=== PATIENT | female | born 1970 | race Caucasian/White ===

== ENCOUNTER → 2020-06-02 13:19 | Outpatient (CLI) | payer OTHER, SELFPAY ==
--- NOTE | ~2020-06-02 | DEXA_ITS ---
Bone Density Report Name: Fara Livingston Age: 50 Sex: Female Ethnicity: White Date of : 1970 Indication: screening for osteoporosis; height loss; Referring Provider: ALISTAIR SERRANO Study: Bone densitometry was performed. Exam Date: June 02, 2020 Accession number: [id number] Bone Density: Region BMD T-score Z-score Classification AP Spine (L1-L4) 0.893 -1.4 -0.6 Osteopenia Femoral Neck (Left) 0.804 -0.4 0.4 Normal Total Hip (Left) 0.955 0.1 0.6 Normal Femoral Neck (Right) 0.839 -0.1 0.7 Normal Total Hip (Right) 0.943 0.0 0.5 Normal Total Hip Mean 0.949 0.1 0.6 Normal World Health Organization criteria for BMD impression classify patients as: Normal (T-score at or above -1.0), Osteopenia (T-score between -1.0 and -2.5), or Osteoporosis (T-score at or below -2.5). 10-year Fracture Risk: FRAX not reported because: Premenopausal woman Clinical Information Provided by Patient: Has used the following medications: Vitamin D, Calcium Patient maximum height was 65.5 No regular weight bearing exercise Does not regularly consume dairy products Drinks caffeinated beverages Onset of menses at age 11 Premenopausal Number of children 3 Impression: The patient's bone mass is within expected range for age, gender and ethnicity. Discussion: BONE DENSITY IS WITHIN EXPECTED LIMITS FOR AGE, SEX AND RACE. Bone density is within expected limits for age, sex and race at all sites measured. The patient should follow a healthful lifestyle (good nutrition with adequate calcium and vitamin D, and appropriate weight-bearing exercise). Follow-Up: Consider repeating this study in 2 to 3 years to reassess this patient's status, or sooner if there is some new clinical indication. Reported by: [facility] on 06/02/2020 1:44:00 PM. Reviewed, dictated and finalized at location AHarrison QUIGLEY
--- NOTE | ~2020-06-02 | MM_ITS ---
EXAMINATION: MM screening [facility] BI w tiffanie HISTORY: Screening mammogram TECHNIQUE: Craniocaudal and mediolateral oblique 3-D tomosynthesis images were obtained and synthetic 2-D images were generated. CAD analysis was submitted and interpreted. COMPARISON: 06/02/2018, 07/17/2016, 01/24/2015, 01/13/2015 BREAST PARENCHYMAL COMPOSITION: There are scattered areas of fibroglandular density. FINDINGS: There is no evidence of suspicious mass, calcification, or architectural distortion to sugg est malignancy in either breast. There has been no suspicious interval change. IMPRESSION: 1. No mammographic evidence of malignancy. 2. Recommend routine screening mammography in one year. BI-RADS Category 1: Negative Reviewed, dictated and finalized at location A. ER STITCHER
== END ==
PROVIDERS: PCP Family Medicine; Visit Provider Obstetrics & Gynecology
DX: Z12.31 Encounter for screening mammogram for malignant neoplasm of breast (principal); Z78.0 Asymptomatic menopausal state; M85.88 Other specified disorders of bone density and structure, other site
CPT/HCPCS: 77063; 77067; 77080

== ENCOUNTER → 2021-06-04 16:42 | Outpatient (CLI) | payer OTHER, SELFPAY ==
--- NOTE | ~2021-06-04 | MM_ITS ---
EXAMINATION: MM screening [facility] w tiffanie HISTORY: Screening mammogram TECHNIQUE: Craniocaudal and mediolateral oblique 3-D tomosynthesis images were obtained and synthetic 2-D images were generated. CAD analysis was submitted and interpreted. COMPARISON: 06/09/2020, 06/02/2018, 07/17/2016 bilateral screening mammogram examinations BREAST PARENCHYMAL COMPOSITION: There are scattered areas of fibroglandular density. FINDINGS: There is stable upper outer quadrant benign-appearing circumscribed left intramammary lymph nodes. There is no evidence of suspicious mass, calcification, or architectural distortion to sugges t malignancy in either breast. There has been no suspicious interval change. IMPRESSION: 1. No mammographic evidence of malignancy. 2. Recommend routine screening mammography in one year. BI-RADS Category 2: Benign finding(s). Reviewed, dictated and finalized at location A. M BUILDER
== END ==
PROVIDERS: Visit Provider Obstetrics & Gynecology
DX: Z12.31 Encounter for screening mammogram for malignant neoplasm of breast (principal)
CPT/HCPCS: 77063; 77067

== ENCOUNTER → 2023-02-06 11:10 | Outpatient (CLI) | payer OTHER, SELFPAY ==
--- NOTE | ~2023-02-06 | MM_ITS ---
EXAMINATION: MM screening [facility] BI w tiffanie HISTORY: Screening TECHNIQUE: Craniocaudal and mediolateral oblique 3-D tomosynthesis images were obtained and synthetic 2-D images were generated. CAD analysis was submitted and interpreted. COMPARISON: Comparison to multiple prior studies sequentially, with oldest reviewed study dated 01/13. BREAST PARENCHYMAL COMPOSITION: There are scattered areas of fibroglandular density. FINDINGS: There is no evidence of suspicious mass, calcification, or architectural distortion to sugg est malignancy in either breast. There has been no suspicious interval change. IMPRESSION: 1. No mammographic evidence of malignancy. 2. Recommend routine screening mammography in one year. BI-RADS Category 1: Negative Reviewed, dictated and finalized at location A.
--- NOTE | ~2023-02-06 | DEXA_ITS ---
Bone Density Report Name: JEFF GALARZA Age: 53 Sex: Female Ethnicity: White Date of : 1970 Indication: osteopenia; height loss; Referring Provider: ALISTAIR SERRANO Study: Bone densitometry was performed. Exam Date: February 06, 2023 Accession number: [id number] Bone Density: Region BMD T-score Z-score Classification AP Spine (L1-L4) 0.829 -2.0 -1.0 Osteopenia Femoral Neck (Left) 0.770 -0.7 0.3 Normal Total Hip (Left) 0.925 -0.1 0.5 Normal Femoral Neck (Right) 0.816 -0.3 0.7 Normal Total Hip (Right) 0.902 -0.3 0.3 Normal Total Hip Mean 0.914 -0.2 0.4 Normal World Health Organization criteria for BMD impression classify patients as: Normal (T-score at or above -1.0), Osteopenia (T-score between -1.0 and -2.5), or Osteoporosis (T-score at or below -2.5). 10-year Fracture Risk(1): Major Osteoporotic Fracture 5.0% Hip Fracture 0.3% Reported Risk Factors: [place] (), Neck BMD=0.770, BMI=26.7, smoking (1) FRAX(R) Version 3.08. Fracture probability calculated for an untreated patient. Fracture probability may be lower if the patient has received treatment. Previous Exams: Region Exam Age BMD T-score BMD Change BMD Change Date g/cm2 vs Baseline vs Previous AP Spine(L1-L4) 02/06/2023 53 0.829 -2.0 -0.065* -0.065* 06/02/2020 50 0.893 -1.4 Total Hip(Left) 02/06/2023 53 0.925 -0.1 -0.030* -0.030* 06/02/2020 50 0.955 0.1 Total Hip(Right) 02/06/2023 53 0.902 -0.3 -0.041* -0.041* 06/02/2020 50 0.943 0.0 *Denotes significance at 95% confidence level, LSC for AP Spine = 0.022 g/cm2, LSC for Total Hip = 0.027 g/cm2 Clinical Information Provided by Patient: Smokes Has used the following medications: Vitamin D, MULTI-VITAMIN Patient maximum height was 65.5 No regular weight bearing exercise Does not regularly consume dairy products Drinks caffeinated beverages Onset of menses at age 12 Number of children 3 Impression: The patient has low bone mass, based on the Total Spine T-score. The patient has an estimated ten-year risk of hip fracture of 0.3% and an estimated ten-year risk of major fracture of 5%, based on the WHO FRAX algorithm. The patient has risk factors, including: smoking. The BMD for the AP Spine(L1-L4) decreased, changing by -0.065 since the last DXA exam. The BMD for the Total Hip(Left) decreased, changing by -0.030 since the last DXA exam. The BMD for
== END ==
PROVIDERS: Visit Provider Obstetrics & Gynecology
DX: Z12.31 Encounter for screening mammogram for malignant neoplasm of breast (principal); Z78.0 Asymptomatic menopausal state; M85.88 Other specified disorders of bone density and structure, other site
CPT/HCPCS: 77063; 77067; 77080